=== PATIENT | female | born 1960 | race Caucasian/White ===

== ENCOUNTER 2016-11-05 15:25 | Emergency (ER) | payer OTHER ==
--- NOTE | 2016-11-05 16:05 | EDPHY ---
H & P Time Seen by Provider: 11/05/16 15:38 HPI/ROS: CHIEF COMPLAINT: Neck pain and stiffness, right arm pain HISTORY OF PRESENT ILLNESS: The patient is a 56 y/o female, with a history of 2 cervical fusions, arriving with her complaining of worsening neck pain and stiffness onset one and half weeks ago. She denies obvious precipitating event or trauma prior to pain onset. She does not generally have neck pain since her last cervical fusion in 2013. She has been using Motrin, ice, heat, and rest for her pain that initially resolved most symptoms; however, about one week ago the pain returned and has been "unrelenting." It now radiates down her right arm and into her hand. The pain is associated with a "clicking" in her neck. She complains of difficulty holding her head up and started wearing a neck brace 5 days ago, which she reports improves her symptoms. Her pain is aggravated by movement. She also complains of separate intermittent throbbing pain in between her shoulder blades onset sometime over the last week. She denies weakness or paresthesias. She has not been evaluated by her neurosurgeon since symptom onset. REVIEW OF SYSTEMS: Constitutional: No fever, no chills Eyes: No visual changes ENT: No sore throat Respiratory: No cough, no shortness of breath Cardiac: No chest pain Gastrointestinal: No nausea, no vomiting, no abdominal pain Genitourinary: No hematuria, no dysuria Musculoskeletal: No leg pain or swelling Skin: No rash Neurological: No headache, no numbness, no weakness Psychiatric: No depression Past Medical/Surgical History: PSH includes: 1. C6-C7 cervical fusion [address] Irvin. 2. C3-C6 fusion in 2012 Reviewed prior medical records reviewed including operative note from 06/19/14. Social History: , at bedside. Nonsmoker. Smoking Status: Never smoked Physical Exam: General Appearance: Alert, pleasant Eyes: Pupils equal and round, no conjunctival pallor or injection ENT, Mouth: Mucous membranes moist Neck: No midline or paraspinous tenderness Respiratory: Lungs are clear to auscultation Cardiovascular: Regular rate and rhythm Gastrointestinal: Abdomen is soft and non-tender Neurological: A&O, nonfocal, normal gait, normal strength, normal sensation Skin: Warm and dry, no rash Extremities: Nontender, no pedal edema Musculoskeletal: Mild right periscapular tenderness. Psychiatric: Mood and affect normal Constitutional: Initial Vital Signs Temperature (C) 37.1 C 11/05/16 15:27 Heart Rate 60 11/05/16 15:27 Respiratory Rate 18 11/05/16 15:27 Blood Pressure 156/84 H 11/05/16 15:27 O2 Sat (%) 94 11/05/16 15:27 O2 Delivery Mode Room Air Allergies/Adverse Reactions: droperidol [From Inapsine] Allergy (Mild, Verified 11/08/16 15:40) anxiety,nausea Home Medications: Medication Instructions Recorded Atenolol [Tenormin 50 mg (*)] 50 mg PO DAILY@06/12/14 Clopidogrel Bisulfate [Plavix (*)] 75 mg PO DAILY@06/12/14 Furosemide [Lasix 40 MG (*)] 40 mg PO DAILY@06/12/14 Isosorbide Mononitrate [Imdur 30 90 mg PO DAILY@06/12/14 mg (*)] Nitroglycerin [Nitrostat 0.4 mg 0.4 mg SL PRN PRN 06/12/14 (RX)] Pravastatin Sodium [Pravachol] 80 mg PO DAILY@06/12/14 Ranitidine HCl [Zantac] 150 mg PO BID 06/12/14 methylPREDNISolone [Medrol Dose 1 each PO AD #0 ea 11/05/16 Jamie] oxyCODONE/APAP 5/325 [Percocet 1 tab PO Q4 PRN #15 tab 11/05/16 5/325 (*)] Aspirin EC [Aspirin EC 325 mg (*)] 325 mg PO DAILY@11/08/16 Levothyroxine [Synthroid 175 mcg 87.5 mcg PO DAILY@11/08/16 (*)] Warfarin Sodium [Coumadin 5MG (*)] 2.5 mg PO SUTUTHSA@11/08/16 Warfarin Sodium [Coumadin 5MG (*)] 5 mg PO MOWEFR@11/08/16 Medical Decision Making - Diagnostics Imaging Results: MRI of the C/T spine read by the radiologist reveals extensive DJD, disk protrusion at C5/6 and C6/7 and mod/severe central canal narrowing. Imaging: Discussed imaging studies w/ hair preparer Radiologist ED Course/Re-evaluation: This is a 56 y/o female with a history of two prior cervical fusions complaining of acute onset neck pain about 1.5 weeks ago that has progressively worsened and is now associated with right arm pain. Her neurovascular exam is normal. She has some mild right periscapular tenderness. Plan for cervical and thoracic MRI to best evaluate her spine. 4mg IV morphine and 4mg IV Zofran administered for pain. Dr. Irvin, neurosurgeon, paged. [id number]: Consulted with Dr. Irvin, the patient's neurosurgeon. He is aware of her condition and will assess her in the ED. 2049: MRI per Dr. Irvin shows cervical disc herniation and mod/severe stenosis. Consulted with Dr. Irvin and he recommends discharge home on Medrol dose pack. She will receive 10mg IV Decadron while here. His office will contact her tomorrow to schedule an epidural to manage her pain. I discussed this plan with the patient. She is comfortable with discharge instructions. Return precautions given. Differential Diagnosis: includes though not limited to epidural abscess, neurologic compromise, vascular compromise, fracture - Data Points Laboratory Results: Laboratory Results 11/05/16 16:20 11/05/16 16:20 Medications Given: Discontinued Medications Dexamethasone (Decadron Injection) 10 mg IVP EDNOW ONE Stop: 11/05/16 20:55 Last Admin: 11/05/16 21:07 Dose: 10 mg Morphine Sulfate (Morphine) 4 mg IVP Q1H PRN PRN Reason: Pain, Severe Unable to Take PO Stop: 11/05/16 18:16 Last Admin: 11/05/16 17:34 Dose: 4 mg Morphine Sulfate (Morphine) 4 mg IVP EDNOW ONE Stop: 11/05/16 18:28 Last Admin: 11/05/16 18:41 Dose: 4 mg Ondansetron HCl (Zofran) 4 mg IVP EDNOW ONE Stop: 11/05/16 16:16 Last Admin: 11/05/16 16:31 Dose: 4 mg Oxycodone/Acetaminophen (Percocet 5/325mg Prepack#4) 1 btl TAKEHOME EDNOW ONE Stop: 11/05/16 20:56 Last Admin: 11/05/16 21:08 Dose: 1 btl Departure - Departure Disposition: Home, Routine, Self-Care Clinical Impression: Cervical disc herniation Condition: Good Instructions: Methylprednisolone (By mouth), Cervical Disc Herniation (ED) Additional Instructions: 1. Take Medrol dose pack as prescribed. 2. Use [place] as prescribed when needed for pain. 3. Dr. Viera's office will call you tomorrow to schedule you for an epidural for pain management. Be sure to follow up with them. 4. Return to the ED for worsening of condition. Referrals: Sal Irvin MD [Medical Doctor] - As per Instructions Prescriptions: methylPREDNISolone [Medrol Dose Jamie] 1 each PO AD #0 ea oxyCODONE/APAP 5/325 [Percocet 5/325 (*)] 1 tab PO Q4 PRN #15 tab PRN Reason: pain Report Scribed for: Meagan Pulliam Report Scribed by: Cielo Bowers Date of Report: 11/05/16 Time of Report: 16:05 Physician Review and Approval Statement: 11/05/16 16:05 Portions of this note were transcribed by a medical secretary receptionist. I personally performed a history, physical exam, medical decision making, and confirmed accuracy of information the transcribed note.
[2016-11-05] MEDS ORDERED: ONDANSETRON 4 MG/2 ML VIAL IVP ONE (16:15)
[2016-11-05 16:29] LABS: % IMMATURE GRANULYOCYTES 0.6 % (0.0-1.1); ABSOLUTE IMMATURE GRANULOCYTES 0.05 10^3/uL (0.00-0.10); ADD DIFF? NO; ADD MORPH? NO; ADD SCAN? NO; ATYPICAL LYMPHOCYTE FLAG 0 (0-99); FRAGMENT RBC FLAG 0 (0-99); HEMATOCRIT 41.8 % (38.0-47.0); HEMOGLOBIN 14.5 g/dL (12.6-16.3); LEFT SHIFT FLG 0 (0-99); LIPEMIA HEMOLYSIS FLAG 90 (0-99); MEAN CELL HEMOGLOBIN 29.2 pg (27.9-34.1); MEAN CELL HEMOGLOBIN CONCENTR. 34.7 g/dL (32.4-36.7); MEAN CELL VOLUME 84.3 fL (81.5-99.8); MEAN PLATELET VOLUME 9.9 fL (8.7-11.7); PLATELET CLUMPS FLAG 0 (0-99); PLATELET COUNT 287 10^3/uL (150-400); RED BLOOD CELL COUNT 4.96 10^6/uL (4.18-5.33)
[2016-11-05 16:46] LABS: ANION GAP 11 mEq/L (8-16); CALCIUM 9.4 mg/dL (8.5-10.4); CARBON DIOXIDE 21 mEq/l (22-31); CHLORIDE 106 mEq/L (97-110); CREATININE 0.8 mg/dL (0.6-1.0); GLOMERULAR FILTRATION RATE > 60; GLUCOSE 101 mg/dL (70-100); POTASSIUM 4.3 mEq/L (3.5-5.2); SODIUM 138 mEq/L (134-144)
[2016-11-05 17:19] VITALS: RESP 16
[2016-11-05] MEDS ORDERED: DEXAMETHASONE 10 MG/ML VIAL IVP ONE (20:54)
[2016-11-05] MEDS ORDERED: OXYCODONE/APAP 5/325MG PREPACK#4 BTL TAKEHOME ONE (20:55)
[2016-11-05 21:10] VITALS: BP 125/75; PULSE 54; TEMP 97.5; O2SAT 98
== END 2016-11-05 21:21 | disposition home or self-care (01) ==
DX: M50.20 Other cervical disc displacement, unspecified cervical region (principal); Z79.01 Long term (current) use of anticoagulants; Z79.82 Long term (current) use of aspirin
CPT/HCPCS: 96374; J2405

== ENCOUNTER 2016-11-08 15:34 | Observation (INO) | payer OTHER ==
--- NOTE | 2016-11-08 15:46 | EDPHY ---
H & P Stated Complaint: Neck Pain Time Seen by Provider: 11/08/16 15:46 - Personal History Current Tetanus/Diphtheria Vaccine: Yes Current Tetanus Diphtheria and Acellular Pertussis (TDAP): Yes - Medical/Surgical History Hx Asthma: No Hx Chronic Respiratory Disease: No Hx Diabetes: No Hx Cardiac Disease: No Hx Renal Disease: No Hx Cirrhosis: No Hx Alcoholism: No Hx HIV/AIDS: No Hx Splenectomy or Spleen Trauma: No Other PMH: Protein C deficiency,CAD, [place] 1999 with stents, c3-6 fusion, ovarian CA with tumor removal - Social History Smoking Status: Never smoked Constitutional: Initial Vital Signs Temperature (C) 36.9 C 11/08/16 15:40 Heart Rate 55 L 11/08/16 15:40 Respiratory Rate 14 11/08/16 15:40 Blood Pressure 187/105 H 11/08/16 15:40 O2 Sat (%) 95 11/08/16 15:40 O2 Delivery Mode Room Air Allergies/Adverse Reactions: droperidol [From Inapsine] Allergy (Mild, Verified 11/08/16 15:40) anxiety,nausea Home Medications: Medication Instructions Recorded Aspirin [Aspirin 81mg (*)] 162 mg PO DAILY10 06/12/14 Atenolol [Tenormin 50 mg (*)] 50 mg PO DAILY 06/12/14 Clopidogrel Bisulfate [Plavix (*)] 75 mg PO DAILY10 06/12/14 Enoxaparin [Lovenox 150mg (*)] 130 mg SC DAILY 06/12/14 Furosemide [Lasix 40 MG (*)] 40 mg PO DAILY10 06/12/14 Isosorbide Mononitrate [Imdur 30 90 mg PO DAILY10 06/12/14 mg (*)] Levothyroxine [Synthroid 150 mcg 150 mcg PO DAILY10 06/12/14 (*)] Linaclotide [Linzess] 290 mcg PO DAILY10 06/12/14 Nitroglycerin [Nitrostat 0.4 mg 0.4 mg SL PRN PRN 06/12/14 (RX)] Pravastatin Sodium [Pravachol] 80 mg PO DAILY10 06/12/14 Ranitidine HCl [Zantac] 150 mg PO BID 06/12/14 Warfarin Sodium [Coumadin 2.5MG 2.5 mg PO SUTUSA@17 06/12/14 (*)] Warfarin Sodium [Coumadin 4MG (*)] 4 mg PO MOTUWEFR@06/12/14 methylPREDNISolone [Medrol Dose 1 each PO AD #0 ea 11/05/16 Jamie] oxyCODONE/APAP 5/325 [Percocet 1 tab PO Q4 PRN #15 tab 11/05/16 5/325 (*)] Medical Decision Making ED Course/Re-evaluation: CHIEF COMPLAINT: Ongoing neck pain. HISTORY OF PRESENT ILLNESS: The patient is a 56-year-old female with a current C6 disc herniation and a history of C3-6 fusion who presents in a c-collar with ongoing neck pain. She was in the ER 3 nights ago for neck pain and had cervical and thoracic MRIs at that time that showed the herniation. She was started on steroids and has been compliant with these. The pain has been ongoing and she has pain down her right arm. She denies numbness, weakness, or paresthesias. REVIEW OF SYSTEMS: A 10 point review of systems was performed and is negative with the exception of the elements mentioned in the history of present illness. PHYSICAL EXAM: HR, BP, O2 Sat, RR. Temp noted General Appearance: Alert, well hydrated, appropriate, and non-toxic appearing. Head: Atraumatic without scalp tenderness or obvious injury Eyes: Pupils equal, round, reactive to light and accommodation, EOMI, no trauma , no injection. Ears: Clear bilaterally, no perforation, normal landmarks Nose: Atraumatic, no rhinorrhea, clear. Throat: There is no erythema or exudates, no lesions, normal tonsils, mucus membranes moist. Neck: Supple, 2+ carotid upstroke, nontender, no lymphadenopathy. Respiratory: No retractions, no distress, no wheezes, and no accessory muscle use. Lungs are clear to auscultation bilaterally. Cardiovascular: Regular rate and rhythm, no murmurs, rubs, or gallops. Bilateral carotid, radial, dorsalis pedis, and posterior tibial pulses intact. Good capillary refill all extremities. Gastrointestinal: Abdomen is soft, nontender, non-distended, no masses, no rebound, no guarding, no peritoneal signs. Musculoskeletal: Normal active ROM of all extremities, atraumatic. Neurological: Alert, appropriate, and interactive. Decreased sensation in right hand. Decreased biceps strength in right upper extremity. Skin: No rashes, good turgor, no nodules on palpation. Past medical history: Protein C deficiency, CAD, [place] 1998 with stents. Past surgical history: C3-6 fusion, ovarian cancer with tumor removal. Family history: N/A. Social history: . DIAGNOSTICS/PROCEDURES/CRITICAL CARE TIME: DIFFERENTIAL DIAGNOSIS: The differential diagnosis for the patient's back pain included but was not limited to musculo-skeletal pain, epidural abscess, herniated disk, spinal fracture, and intra-abdominal causes including urinary system. MEDICAL DECISION MAKING: This 56-year-old female was diagnosed with C6 herniation 3 days ago in the ED via MRI. She presents because her pain has not subsided at all while on steroids. She is exhibiting sensory and motor symptomatology from this herniation. She has decreased right biceps strength and decreased sensation in her right hand. An IV was established. Labs ordered including basic preoperative labs. This patient is on Coumadin, Plavix, and aspirin. Dr. Aylin melissa. 1mg IV Dilaudid administered for pain. 1611: Consulted with Dr. Prasad, neurosurgery. He recommends admission to hospitalist and will consult on the patient. 1622: Consulted with Dr. Armando, hospitalist. We discussed reversal of her Coumadin, Plavix, aspirin, or Coumadin bridging. He accepts admission. Departure - Departure Disposition: [facility] Inpatient Acute Clinical Impression: Cervical herniation, Cervical radiculopathy Condition: Fair Referrals: NONE *PRIMARY CARE P,. [Primary Care Provider] - As per Instructions Report Scribed for: Louie Corona Report Scribed by: Damir Fuentes Date of Report: 11/08/16 Time of Report: 16:13
[2016-11-08] MEDS ORDERED: NS 1,000 ML IV ONE (16:05)
[2016-11-08] MEDS ORDERED: HYDROmorphONE/DILAUDID 1 MG/ML SYR IVP ONE (16:07)
[2016-11-08 16:39] LABS: % IMMATURE GRANULYOCYTES 0.8 % (0.0-1.1); ABSOLUTE IMMATURE GRANULOCYTES 0.09 10^3/uL (0.00-0.10); ADD DIFF? NO; ADD MORPH? NO; ADD SCAN? NO; ATYPICAL LYMPHOCYTE FLAG 0 (0-99); FRAGMENT RBC FLAG 0 (0-99); HEMATOCRIT 41.8 % (38.0-47.0); HEMOGLOBIN 13.8 g/dL (12.6-16.3); LEFT SHIFT FLG 0 (0-99); LIPEMIA HEMOLYSIS FLAG 80 (0-99); MEAN CELL HEMOGLOBIN 28.2 pg (27.9-34.1); MEAN CELL VOLUME 85.3 fL (81.5-99.8); MEAN PLATELET VOLUME 9.9 fL (8.7-11.7); PLATELET CLUMPS FLAG 0 (0-99); PLATELET COUNT 340 10^3/uL (150-400); RED CELL DISTRIBUTION WIDTH 14.5 % (11.5-15.2)
[2016-11-08 16:52] LABS: INR 2.9 (0.83-1.16); PROTIME(PATIENT) 30.7 SEC (12.0-15.0)
[2016-11-08 16:53] LABS: APTT 33.7 SEC (23.0-38.0)
[2016-11-08 16:55] LABS: ANION GAP 11 mEq/L (8-16); CALCIUM 9.9 mg/dL (8.5-10.4); CARBON DIOXIDE 23 mEq/l (22-31); CHLORIDE 105 mEq/L (97-110); CREATININE 0.8 mg/dL (0.6-1.0); GLOMERULAR FILTRATION RATE > 60; GLUCOSE 108 mg/dL (70-100); POTASSIUM 4.3 mEq/L (3.5-5.2); SODIUM 139 mEq/L (134-144)
[2016-11-08] MEDS ORDERED: ACETAMINOPHEN 325 MG TAB PO PRN (18:27)
[2016-11-08] MEDS ORDERED: ONDANSETRON 4 MG/2 ML VIAL IVP PRN (18:27)
[2016-11-08] MEDS ORDERED: ONDANSETRON DISINTEGRATING 4 MG TAB PO PRN (18:27)
[2016-11-08] MEDS ORDERED: NALOXONE HCL 0.4 MG/ML INJ IVP PRN (18:29)
--- NOTE | 2016-11-08 19:41 | GHP ---
[f rep st] HISTORY AND PHYSICAL DATE OF ADMISSION: 11/08/2016 CHIEF COMPLAINT: Neck and arm pain. HISTORY OF PRESENT ILLNESS: This is a 56-year-old female with a history of previous cervical disk h erniation and rupture. She is status post a 2-level fusion by Dr. Irvin. She also has some chronic back pain and sees him as well. She was in her usual state of health until 3 days ago, whe n she started developing right-sided arm pain, shoulder pain, as well as neck pain. She came to the emergency department and they found that she has a herniated disk and radiculopathy in the right C6 -C7 level. She was sent home on steroids and pain medicine. Did see Dr. Irvin in the offic e. She was on a brace. However, the pain was intractable and she came to the emergency department. Pain is in her shoulders. She also has a heaviness in her neck and her head. The pain starts in her shoulder and goes all the way down to her hand. She does have weakness. She also has weakness with keeping her head up as well. She has had no bowel or bladder difficulty. No fevers or chills. REVIEW OF SYSTEMS: A 10-point review of systems was obtained, and other than states above, was nega tive. PAST MEDICAL HISTORY: 1. Cervical radiculopathy, previous cervical disk disease. 2. Lumbar disk disease. 3. Protein C deficiency that manifested as arterial leg clot, a popliteal artery clot. 4. History of coronary artery disease, status post PR in 1998. 5. Stage I ovarian cancer. MEDICATIONS: Reviewed. SOCIAL HISTORY: No smoking or alcohol. FAMILY HISTORY: Positive protein C deficiency. PHYSICAL EXAMINATION: VITAL SIGNS: Afebrile, blood pressure is 154/71, heart rate 44, oxygen satur ation 98% on room air. GENERAL: Patient is well developed, in some distress due to pain. HEENT: Nonicteric sclerae. Extraocular movements intact. Moist mucous membranes. NECK: Supple. No thyr omegaly. LUNGS: Good effort. Clear to auscultation bilaterally. CARDIOVASCULAR: Regular rate an d rhythm. No murmurs or gallops. ABDOMEN: Positive bowel sounds. Soft, nontender, nondistended. No hepatosplenomegaly. EXTREMITIES: No clubbing, cyanosis, or edema. SKIN: Without rash, dry, i ntact. NEURO: Alert and oriented x3. She has weakness in biceps and interosseous muscles. PSYCHI ATRIC: Normal mood and affect. LABORATORY DATA: White blood cell count slightly elevated at 10, otherwise normal. INR is 2.9. Ch emistries normal. ASSESSMENT: This is a 56-year-old female, with cervical radiculopathy, probably will need surgery. Being admitted for bridging and pain control. PLAN: 1. Cervical radiculopathy. Neurosurgery has been called and they will see the patient. 2. History of protein C deficiency. Patient's INR is 2.9. We will hold her Coumadin. When this f alls below 2, we will start Lovenox, and will bridge after surgery. 3. History of coronary artery disease. This is quite remote and so we will discontinue her aspirin and Plavix in preparation for surgery. 4. Pain control. I have started Dilaudid PASSENGER TRAIN BRAKER. Also, started a small dose of OxyContin b.i.d. we will continue steroids and also a small dose of Neurontin. ADMISSION: Patient is being admitted under full admission status. Case was discussed with the ER. Old records are reviewed and summarized in the HPI. /[id number]/MODL
[2016-11-08] MEDS: oxyCODONE CR 15 MG TAB PO SCH (20:52)
[2016-11-08] MEDS: FAMOTIDINE 20 MG TAB PO SCH (20:53)
[2016-11-08] MEDS: GABAPENTIN 100 MG CAP PO SCH (20:53)
[2016-11-08] MEDS: HYDROmorphONE/DILAUDID 6 MG/30 ML PCA IV PRN (22:46)
[2016-11-09 05:22] LABS: INR 2.31 (0.83-1.16); PROTIME(PATIENT) 25.6 SEC (12.0-15.0)
[2016-11-09] MEDS: DEXAMETHASONE 4 MG TAB PO SCH ×4 (05:59→20:57)
[2016-11-09] MEDS: HYDROmorphONE/DILAUDID 6 MG/30 ML PCA IV PRN (08:46)
--- NOTE | 2016-11-09 08:56 | CPEKG ---
Heart Rate: 62 RR Interval: 968 P-R Interval: 208 QRSD Interval: 94 QT Interval: 416 QTC Interval: 423 P [place]: 46 QRS [place]: 44 T Wave [place]: -37 EKG Severity - ABNORMAL ECG - EKG Impression: SINUS RHYTHM EKG Impression: VENTRICULAR TRIGEMINY EKG Impression: ABNORMAL T, CONSIDER ISCHEMIA, INFERIOR LEADS Electronically Signed By: Ezekiel Hickman 10-Nov-2016 06:51:22
--- NOTE | 2016-11-09 09:57 | GCON ---
[f rep st] CONSULTATION CONSULTATION/HISTORY AND PHYSICAL CHIEF COMPLAINT: Cervicalgia with right upper extremity pain. HISTORY OF PRESENT ILLNESS: The patient is a 56-year-old female with significant medical history of coronary artery disease and a history of MD, as well as protein C deficiency. She is on a regimen of blood thinners including aspirin, Plavix, and warfarin. She is a status post 2-level fusion with Dr. Irvin in 2013. She came into the emergency department, after being seen approximately 3 days ago, with acute exacerbation of her pain. She was started on pain medications and oral dose of steroids, and was instructed to follow up with Dr. Irvin's office. Unfortunately, she ca me into the emergency department because her pain was much worse. She has a known right-sided C6-7 herniated disk. She does have a history of a prior cervical fusion with Dr. Irvin. She was using a collar. She was trying pain medication at home, and she was unsuccessful with adequate bailey n control. When I asked her to describe her pain, she describes mainly pain in the right shoulder a nd down the right arm, down the dorsal surface of the forearm, into the hand. She also describes so me, to a lesser extent, left-sided neck pain and shoulder pain. She describes heaviness in her neck and head. She does have some weakness in the right upper extremity. She has no loss of bowel or b ladder control. No saddle numbness. Her gait is fine. She has no fevers or chills. PAST MEDICAL HISTORY: Significant for the followin. Cervical radiculopathy with previous cervical disk disease. 2. Lumbar disk disease. 3. Protein C deficiency manifested with arterial leg clot and popliteal artery clot. 4. History of coronary artery disease with MD in 1998. 5. Stage I ovarian cancer. MEDICATIONS: Please see med rec form. ALLERGIES: Droperidol. SOCIAL HISTORY: The patient denies any smoking or alcohol. No history of drug abuse. FAMILY HISTORY: Positive for protein C deficiency. IMMUNIZATIONS: Reported up-to-date. TRAVEL: No recent travel. REVIEW OF SYSTEMS: Complete review of systems in conjunction with above, please see HPI. PHYSICAL EXAM: GENERAL: This is an awake, alert, oriented female in no acute distress. She is abl e to follow commands appropriately. VITAL SIGNS: Most recent, blood pressure 194/90, with a MAP of 124, heart rate is 63, 18 respirations, 96% on room air, and a temperature 36.4. HEENT: Head is n ormocephalic, atraumatic. Pupils are equal, round, reactive to light. EOMs intact. Full visual fi elds by confrontation. Ears are patent. Nose is patent. NECK: Soft, supple. No midline tenderne ss. Full range of motion in flexion, extension, lateral bending, and rotation. RESPIRATORY AND CAR DIAC: Deferred. ABDOMEN: Soft, nontender. No peritoneal signs. AND RECTAL: Deferred. NEURO : Patient is awake, alert, oriented to name, place, location, date, time, and situation. Memory is intact to immediate, past, and current events. Speech: No aphasia, dysarthria, dysphonia. Crania l nerves 2-12 grossly intact. Motor: Patient has 5/5 strength in all muscle groups of the bilatera l upper and lower extremities, to include deltoids, biceps, triceps, brachioradialis, wrist flexors and extensors, clerk checker intrinsic fingers, iliopsoas, quadriceps, hamstring, plantar flexion, dorsiflexi on, EHL testing, with the exception of right deltoid, right biceps, and triceps at 4 out of 5. Sens ation is grossly intact to light touch throughout all dermatome distributions, upper and lower extre mities. Negative straight-leg raise. Negative COURTNEY test. Reflexes of biceps, triceps, brachiorad ialis, knee jerks, and ankle jerk are 2+ out of 4. Toes are downgoing bilaterally. Quezada's negat jeremie. Babinski negative. No evidence of clonus. MEDICAL DECISION MAKING/DIAGNOSTIC STUDIES: MRI of the cervical spine dated 11/05/2016, shows evide nce of prior cervical fusion, C3-4 through C6-7. There is myelomalacia noted at the level C5. Ther e is significant foraminal stenosis on the right side at C6-7, and [id number] central spinal narrowing on the right as well. Laboratory 11/08/2016, shows a white count of 10.69, with H and H 13.8 and 41.8, with a platelet cou nt of 340. Coags on 11/09/2016, show an INR of 2.31, and a PT of 25.6. Chemistry on 11/08/2016, so dium 139, potassium 4.3, chloride 105, CO2 23, BUN 24, creatinine 0.8, and a glucose of 108. IMPRESSION: 1. Multiple medical conditions including protein C deficiency, history of coronary artery disease, and myocardial infarction in 1998. 2. Right-sided C6-7 neural foraminal stenosis, plus severe degenerative disk disease. 3. Right upper extremity pain, unresponsive to conservative management. PLAN AND DISCUSSION: The patient is a 56-year-old female, who was admitted to the Internal Medicine service with acute exacerbation of neck and upper extremity pain. She has significant medical hist ory of protein C, as well as an MD and coronary artery disease. She is on aspirin, Coumadin, and Pl avix. She stopped her Plavix and Coumadin yesterday. She did take an aspirin yesterday. I did spe ak with Dr. Irvin regarding her care, and recommendations for her to clear the aspirin and b lood thinners. Likely, she will need to be bridged with Lovenox, and with plan for surgical interve ntion later this week at the earliest. Dr. Irvin will see and evaluate the patient here sangeeta rtly, and will develop finalized plan. All questions and concerns were answered. Patient lataan olga and agrees. /[id number]/MODL
[2016-11-09] MEDS: ISOSORBIDE MONONITRATE 30 MG TAB.SR PO SCH (10:36)
[2016-11-09] MEDS: FUROSEMIDE 40 MG TAB PO SCH (10:39)
[2016-11-09] MEDS: LEVOTHYROXINE 175 MCG TAB PO SCH (10:39)
[2016-11-09] MEDS ORDERED: oxyCODONE IR 5 MG TAB PO PRN (10:39)
[2016-11-09] MEDS: ATENOLOL 50 MG TAB PO SCH (10:40)
[2016-11-09] MEDS: PRAVASTATIN SODIUM 40 MG TAB PO SCH (10:40)
[2016-11-09] MEDS: GABAPENTIN 100 MG CAP PO SCH ×3 (10:41→20:57)
[2016-11-09] MEDS: FAMOTIDINE 20 MG TAB PO SCH ×2 (10:41→20:57)
[2016-11-09] MEDS: oxyCODONE CR 15 MG TAB PO SCH ×2 (10:42→20:58)
[2016-11-09] MEDS ORDERED: LACTULOSE 20 GM/30 ML UDCUP PO PRN (10:48)
[2016-11-09] MEDS ORDERED: BISACODYL 10 MG SUPP PR PRN (10:48)
[2016-11-09] MEDS ORDERED: MAGNESIUM HYDROXIDE 30 ML UDCUP PO PRN (10:48)
[2016-11-09] MEDS ORDERED: POLYETHYLENE GLYCOL 3350 17 GM PKT PO PRN (10:48)
[2016-11-09] MEDS: hydrALAZINE 10 MG TAB PO ONE ×2 (10:49→10:55)
[2016-11-09] MEDS ORDERED: hydrALAZINE 10 MG TAB PO ONE (11:00)
[2016-11-09] MEDS: OXYCODONE/APAP 5/325 TAB PO PRN ×3 (11:30→20:58)
--- NOTE | 2016-11-09 11:52 | GCON ---
[f rep st] CONSULTATION HEMATOLOGY CONSULTATION. DATE OF CONSULTATION: 11/09/2016 REASON FOR CONSULTATION: 1. Protein C deficiency. 2. History of arterial thrombosis. HISTORY OF PRESENT ILLNESS: The patient is a 56-year-old female who is followed by Dr. Chastity mccabe in [place]. The patient has a known diagnosis of protein C deficiency. The patient had a myocardi al infarction at the age of 38 in 1999. She was started on aspirin and Plavix at that time. In , she developed a right lower extremity popliteal artery thrombosis. She was continued on aspirin and Plavix. She moved to [place]. She established with a local Supervisor [place] who referred her to Anthony Cherry for further evaluation. Testing revealed a protein C deficiency and she was starte d on warfarin. She has been maintained on warfarin ever since August of 2010. She has had no sig nificant bleeding issues on the combination of aspirin, Plavix and warfarin. She has had prior C-sp ine surgeries requiring a Lovenox bridge. Her most recent C-spine surgery was done in 2013. She presented to the hospital recently with worsening neck pain. Imaging studies done in the emerge ncy room revealed worsening of a C6-7 herniated disk. Surgery is planned. She has not taken her Pl avix since Wednesday. She has not taken her warfarin since Wednesday. She did take her aspirin yeste . Further aspirin, Plavix and warfarin have been held. Her INR today is 2.3. PAST MEDICAL HISTORY: 1. Myocardial infarction in 1998. 2. Acute thrombosis of right popliteal artery in 2000. 3. Protein C deficiency. 4. 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 5. Cervical disk disease status post 2 prior cervical surgeries. SOCIAL HISTORY: The patient lives locally. She is . She is a nonsmoker. FAMILY MEDICAL HISTORY: Patient reports her mother had a history of protein C deficiency. PHYSICAL EXAM: The patient is intermittently tearful due to neck pain. She is lying in the bed. S he has no extremity swelling or edema. No ecchymosis. No petechiae. No signs of bleeding. She is alert, oriented and appropriate. LABORATORY STUDIES: INR from today is 2.3. White count 10.6, hemoglobin 13.8, platelet count 340,0 00. Absolute neutrophil count is 7700. IMPRESSION: 1. History of right popliteal artery thrombosis in 2000 with documented protein-C deficiency. 2. History of myocardial infarction. 3. Cervical disk pain. 4. History of low-grade serous carcinoma of the ovary status post total abdominal hysterectomy/bila teral salpingo-oophorectomy August 2012 with no evidence of disease recurrence. The patient is a 56-year-old female who presents with cervical disk pain due to disk herniation. Sh e will require neurosurgical intervention. Hematologic consultation is requested. I was able to review her previous notes from Dr. Cherry via our electronic medical record. I confi rmed with the patient that she has never had an episode of venous thrombosis. She has protein S def iciency; however, this in general is not associated with arterial thrombosis. It is unclear how muc h this played a role in her myocardial infarction and her popliteal thrombosis. The patient has bee n evaluated for Dr. Cherry and has been maintained on therapeutic doses of warfarin in addition to aspirin and Plavix for many years. I will defer her overall hematologic management to Dr. Cherry. In light of her upcoming surgery, I agree with holding her aspirin and Plavix. She will not likely be able to have neurosurgical intervention for approximately 5 days. Once her INR is below 2, I re commend initiation of Lovenox 1 mg/kg b.i.d., holding her dose of Lovenox the night before and the m orning of surgery. Lovenox would then be resumed as soon as felt safe by Neurosurgery and the patie nt could slowly be started back on aspirin, Plavix and transitioned back to warfarin. Her warfarin is currently being held. The above plan was discussed with the patient as well as the hospitalist service. Our service will continue to follow her during her hospital stay. I will notify Dr. Cherry for admission. Total time for today's visit was approximately 45 minutes including review of patient's prior medica l records. Copy requested to: Dr. Chastity Cherry /[id number]/MODL
[2016-11-09] MEDS: METHOCARBAMOL 750 MG TAB PO PRN ×2 (13:20→20:57)
--- NOTE | 2016-11-09 14:43 | HOSPPROG ---
Hospitalist Progress Note Assessment/Plan: 56y female with complaints of neck and right arm pain. This is my first encounter with the patient. Chart reviewed. D/W Chris Majano. #Right arm pain will need surgical intervention with Dr Aylin FUENTES C6 stenosis #Pain dc [place] [employer] transition to PO meds #Protein C def appreciate heme consult will bridge with lovenox when INR trends down #Hx CAD/MO stable cont outpatient therapy #Dispo anticipate 1-2 days on PO pain meds Dr Viera in agreement Will schedule surgery for next week Subjective: Tearful. C/O pain. Anxious. Objective: Vital Signs Temp Pulse Resp BP Pulse Ox 36.9 C 57 L 14 151/87 H 95 11/09/16 11:55 11/09/16 14:00 11/09/16 14:00 11/09/16 14:00 11/09/16 14:00 11/08/16 11/09/16 11/10/16 05:59 05:59 05:59 Intake Total 700 Balance 700 PT 25.6 SEC (12.0-15.0) H 11/09/16 04:30 INR 2.31 (0.83-1.16) H 11/09/16 04:30 - Physical Exam Constitutional: appears nourished, obese, uncomfortable Eyes: PERRL, anicteric sclera, EOMI Ears, Nose, Mouth, Throat: moist mucous membranes, hearing normal, ears appear normal Cardiovascular: No JVD, No tachycardia, No edema Respiratory: no respiratory distress, no rales or rhonchi, reduced air movement Gastrointestinal: No tenderness, No ascites, No guarding Skin: warm, normal color, No erythema Musculoskeletal: pain with ROM, muscular tenderness, generalized weakness Neurologic: AAOx3 Psychiatric: not encephalopathic, thought process linear, anxious, poor insight ICD10 Worksheet Patient Problems: Problems Problem Status Onset Cervical radicular pain Acute Cervical herniation Acute Cervical radiculopathy Acute
[2016-11-09] MEDS: SENNOSIDES/DOCUSATE SODIUM TAB PO SCH (20:57)
[2016-11-10] MEDS: OXYCODONE/APAP 5/325 TAB PO PRN ×2 (00:44→14:53)
[2016-11-10] MEDS: METHOCARBAMOL 750 MG TAB PO PRN ×3 (00:45→14:08)
[2016-11-10] MEDS ORDERED: LORazepam 0.5 MG TAB PO PRN (01:14)
[2016-11-10 05:48] LABS: INR 1.67 (0.83-1.16); PROTIME(PATIENT) 19.7 SEC (12.0-15.0)
[2016-11-10] MEDS: oxyCODONE IR 15 MG TAB PO PRN ×2 (06:02→10:54)
[2016-11-10] MEDS: DEXAMETHASONE 4 MG TAB PO SCH ×2 (06:02→13:21)
[2016-11-10 07:50] VITALS: BP 147/85; PULSE 58; RESP 12; TEMP 97.5; O2SAT 96
--- NOTE | 2016-11-10 07:50 | NEUSURGPN ---
Assessment/Plan: Assessment: 56 yo female admitted to with neck and RUE pain. Pt has hx of prior C spine fusion Plan: -prior C spine fusion with ASD at C6/7 on the right -pt was on ASA/plavix and coumadin-held at this time -D/W Dr Viera and plan for surgery on Wednesday with Dr Viera -pt understands and agrees with this -call our office to confirm time and surgery location -warning signs given -call with any questions or concerns -NS to sign off and pt to follow up next week for surgery -bridge of lovenox per IM-to stop day before surgery. No ASA/Plavix or Coumadin Subjective: Awake and alert. NAD. Eating/drinking and voiding. No f/c/n/v/d. No guerra/cp/ sob/abd or gu complaints. Objective: AAO x 3, PERRLA/EOMI no droop CN 2-12 grossly intact +lt touch 5/5 BUE/BLE = except right D/Tri/Bi at 4+/5 Neuro Check Frequency: per routine Urinary Catheter in Place: No - Physician Discussed Patient with : [facility] Physical Exam - Vitals, I&O, Labs I and O 11/09/16 11/10/16 11/11/16 05:59 05:59 05:59 Intake Total 700 750 Balance 700 750 Intake: Oral (ml) 700 750 Other: Intake Quantity Yes Yes Sufficient Number of Voids Toilet 4 2 Vital Signs Temp Pulse Resp BP Pulse Ox 38.2 C 54 L 16 108/57 L 90 L 11/09/16 19:19 11/10/16 03:03 11/10/16 03:03 11/10/16 03:03 11/10/16 03:03 ICD10 Worksheet Patient Problems: Problems Problem Status Onset Cervical herniation Acute Cervical radiculopathy Acute Cervical radicular pain Acute
[2016-11-10] MEDS: LEVOTHYROXINE 175 MCG TAB PO SCH (08:50)
[2016-11-10] MEDS: GABAPENTIN 100 MG CAP PO SCH (08:51)
[2016-11-10] MEDS: oxyCODONE CR 15 MG TAB PO SCH (08:51)
[2016-11-10] MEDS: SENNOSIDES/DOCUSATE SODIUM TAB PO SCH (08:52)
[2016-11-10] MEDS: FAMOTIDINE 20 MG TAB PO SCH (08:52)
[2016-11-10] MEDS ORDERED: ENOXAPARIN 100 MG/ML SYR SC SCH (09:00)
[2016-11-10] MEDS: ISOSORBIDE MONONITRATE 30 MG TAB.SR PO SCH (10:55)
[2016-11-10] MEDS: ATENOLOL 50 MG TAB PO SCH (10:55)
[2016-11-10] MEDS: FUROSEMIDE 40 MG TAB PO SCH (10:56)
[2016-11-10] MEDS: PRAVASTATIN SODIUM 40 MG TAB PO SCH (10:56)
--- NOTE | 2016-11-10 14:10 | GDS ---
[f rep st] DISCHARGE SUMMARY DISCHARGE DIAGNOSES: 1. Right arm and neck pain. 2. History of protein C deficiency. 3. History of coronary artery disease with myocardial infarction. CONSULTATIONS: 1. Neurosurgery. 2. Hematology. STUDIES AND PROCEDURES DONE: 1. Cervical spine x-ray. 2. CT of the cervical spine. PHYSICAL EXAM: GENERAL: The patient is alert. VITAL SIGNS: Afebrile at 36.4, pulse is 58, respir atory rate is 12, blood pressure is 147/85, she is saturating 96 on 1 L. I have seen and evaluated the patient on the day of discharge. HOSPITAL COURSE: The patient is a 56-year-old female who presents to the emergency room with compla ints of arm and neck pain. She was evaluated and diagnosed with. 1. C6 stenosis and degenerative disk disease. She did receive a consultation from Neurosurgery dur ing this hospitalization. Further evaluation with a CT scan as well as multiple x-rays have been pe rformed prior to disposition. She is scheduled for surgical intervention with Dr. Irvin in the next week and will follow with him in the outpatient setting. Her pain is well managed on oral narcotics. Prescriptions have been provided by Neurosurgery at the time of disposition. 2. History of protein C deficiency. Hematology did consult on the patient during her hospital cour se. She has been taken off all her anti-platelet medications and has been transitioned to Lovenox f or bridge therapy until her surgical intervention. 3. History of coronary artery disease with MN. This appears to be stable with no intervention dominique anted at this time. DISPOSITION: The patient will be discharged home independently. She has been provided prescription s for narcotics as well as Lovenox. There are no pending studies. Followup will be with Dr. Bety nolan in the next week. I have reviewed the patient's disposition with Neurosurgery, and they are in agreement with this plan. I spent greater than 35 minutes in the care, coordination, and manage ment of this patient's discharge. /[id number]/MODL
== END 2016-11-10 14:59 | disposition home or self-care (01) ==
LOC: F3N 17:38 → OBSVTOIN 18:29 → INTOOBSV 18:29
PROVIDERS: ADMIT Internal Medicine; ATTEND Internal Medicine
DX: M50.222 Other cervical disc displacement at C5-C6 level (principal); I25.10 Atherosclerotic heart disease of native coronary artery without angina pectoris; I25.2 Old myocardial infarction; Z95.5 Presence of coronary angioplasty implant and graft; D68.59 Other primary thrombophilia; Z85.43 Personal history of malignant neoplasm of ovary; Z79.01 Long term (current) use of anticoagulants; Z79.82 Long term (current) use of aspirin; Z98.1 Arthrodesis status
CPT/HCPCS: 72050; 72125; 93005; G0378; 96374; J1170; J1650